=== PATIENT | female | born 2000 | race Caucasian/White ===

== ENCOUNTER → 2019-11-12 09:14 | Outpatient (CLI) | payer BC, SELFPAY ==
--- NOTE | ~2019-11-12 | US_ITS ---
US breast RT complete DATE: 11/12/2019 10:14 INDICATION: Right lower inner quadrant breast lump for 3 weeks. Mother had breast cancer at approxima tely age 45. TECHNIQUE: High-resolution ultrasound and color flow imaging of complete right breast COMPARISON: None FINDINGS: There is a circumscribed oval parallel hypoechoic 11 x 22 x 27 mm solid mass at 5:00 4 cm f rom the nipple at the area of clinical complaint of right breast lump. There is internal vascularity and no suspicious shadowing. The sonographic appearance is most consistent with benign process, likel y a fibroadenoma. There is no suspicious mass or shadowing elsewhere in the right breast. 6 month follow-up ultrasound is recommended. IMPRESSION: BI-RADS Category 3: Probably benign finding. Probable benign fibroadenoma Recommendation: 6 month right breast targeted ultrasound follow-up Reviewed, dictated and finalized at [facility]. Reviewed, dictated and finalized at [facility]. IMPRESSION: BI-RADS Category 3: Probably benign finding. Probable benign fibroa denoma Recommendation: 6 month right breast targeted ultrasound follow-up
== END ==
PROVIDERS: PCP Family Medicine; Visit Provider Family Medicine
DX: N63.10 Unspecified lump in the right breast, unspecified quadrant (principal); Z80.3 Family history of malignant neoplasm of breast; R92.8 Other abnormal and inconclusive findings on diagnostic imaging of breast
CPT/HCPCS: 76641

== ENCOUNTER → 2021-03-29 12:18 | Outpatient (CLI) | payer BC, SELFPAY ==
--- NOTE | ~2021-03-29 | US_ITS ---
US breast RT complete 03/29/2021 12:33 Indication: Follow-up right breast mass Procedure: High resolution Limited ultrasound of the right breast Comparison: Ultrasound dated 11/12/2019 Findings: There is an oval circumscribed hypoechoic mass with parallel orientation, mixed posterior a ttenuation and marginal vascularity 5:00, 4 cm from the nipple. This mass measures 2.7 x 2.6 x 1.4 cm compared with 2.7 x 2.2 x 1.1 cm on prior examination. No additional masses are seen. Impression: 1: Slightly increased size of likely benign right breast mass located at 5:00, 4 cm from the nipple. BI-RADS CATEGORY 3-PROBABLY BENIGN FINDING RECOMMENDATION: Six-month follow-up right breast ultrasound recommended. Reviewed, dictated and finalized at [facility]. Impression: 1: Slightly increased size of likely benign right breast mass located at 5:00, 4 cm from the nipple. BI-RADS CATEGORY 3-PROBABLY BENIGN FINDING RECOMMENDATION: Six-month follow-up right breast ultrasound recommended.
== END ==
PROVIDERS: PCP Family Medicine; Visit Provider Physician Assistant
DX: N63.10 Unspecified lump in the right breast, unspecified quadrant (principal); R92.8 Other abnormal and inconclusive findings on diagnostic imaging of breast
CPT/HCPCS: 76641

== ENCOUNTER 2021-11-02 10:36 | Outpatient (CLI) | payer BC, SELFPAY ==
--- NOTE | ~2021-11-02 | US_ITS ---
EXAMINATION: US breast RT limited HISTORY: Follow-up of a probably benign lump of the lower inner right breast TECHNIQUE: Limited right breast ultrasound was performed. COMPARISON: 03/29/2021 FINDINGS: There is a 3.4 x 1.5 cm oval, circumscribed, parallel, hypoechoic mass with no posterior fe atures or internal vascularity at the 4:00 location 4 cm from the nipple. The mass demonstrates sligh t interval increase in size, previously measuring up to 2.6 cm. IMPRESSION: Although possibly reflecting a fibroadenoma, ultrasound-guided biopsy of the right breast mass is rec ommended due to continued interval enlargement. BI-RADS category 4, suspicious findings. Reviewed, dictated and finalized at [facility]. IMPRESSION: Although possibly reflecting a fibroadenoma, ultrasound-guided biopsy of the ri ght breast mass is recommended due to continued interval enlargement. BI-RADS category 4, suspicious findings.
== END 2021-11-02 10:37 | disposition home or self-care (01) ==
LOC: ANHIMG 10:40
PROVIDERS: PCP Family Medicine; Visit Provider Physician Assistant
DX: N63.10 Unspecified lump in the right breast, unspecified quadrant (principal); R92.8 Other abnormal and inconclusive findings on diagnostic imaging of breast
CPT/HCPCS: 76642